=== PATIENT | female | born 1985 | race American Indian/Alaskan Native ===

== ENCOUNTER 2018-10-10 10:02 | Emergency (ER) | payer OTHER ==
[2018-10-10 10:18] VITALS: BP 128/65
[2018-10-10] MEDS ORDERED: DECADRON IV ONE (12:41)
[2018-10-10] MEDS ORDERED: ZOFRAN IV ONE (12:41)
[2018-10-10] MEDS ORDERED: TORADOL IV ONE (12:41)
[2018-10-10] MEDS ORDERED: NACL 0.9% 1000 ML 1,000 ML IV ONE (12:42)
[2018-10-10] MEDS ORDERED: IMITREX SUB-Q ONE (12:47)
--- NOTE | 2018-10-10 12:47 | Emergency Department Report ---
ED Headache HPI - General Chief Complaint: Headache Stated Complaint: HEADACHE/L ARM PAIN/VOMITTING Time Seen by Provider: 10/10/18 12:34 Source: patient, RN notes reviewed - History of Present Illness Initial Comments: Bridgett is a 33 yo healthy female who presents with headache for the past 4 days. She has pain at the medial eye region bilaterally. She has had malodorous nasal congestion. +vomiting one episode. No fever. +body aches +left arn tingling Has had headaches twice a month since adolescence, dx'd with sinus infection as a teenager, instructed to use flonase Pain is worse when she leans forward or when she presses on her eyes or head Timing/Duration: other (4 days) Quality: moderate, constant, pressure Modifying Factors: improves with: movement Associated Symptoms: nasal congestion, nasal drainage. denies: stiff neck Allergies/Adverse Reactions: Allergies No Known Allergies Allergy (Unverified 10/10/18 10:05) Home Medications: Ambulatory Orders Butalb/Acetaminophen/Caffeine [Fioricet 50-300-40 mg CAP] 1 cap PO Q6HR PRN #20 cap 10/10/18 ED Review of Systems ROS: Stated complaint: HEADACHE/L ARM PAIN/VOMITTING Other details as noted in HPI Comment: All other systems reviewed and negative Constitutional: malaise. denies: fever Respiratory: denies: cough Gastrointestinal: nausea, vomiting Musculoskeletal: myalgia ED Past Medical Hx - Past Medical History Previous Medical History?: No - Surgical History Past Surgical History?: Yes Additional Surgical History: eye plugs - Social History Smoking Status: Never Smoker Substance Use Type: None - Medications Home Medications: Home Medications Medication Instructions Recorded Confirmed Last Taken Type Butalb/Acetaminophen/Caffeine 1 cap PO Q6HR PRN #20 cap 10/10/18 Unknown Rx [Fioricet 50-300-40 mg CAP] ED Physical Exam - General Limitations: No Limitations General appearance: alert, in no apparent distress - Head Head exam: Present: atraumatic, normocephalic - Eye Eye exam: Present: normal appearance - ENT ENT exam: Present: mucous membranes moist - Neck Neck exam: Present: normal inspection, full ROM - Respiratory Respiratory exam: Present: normal lung sounds bilaterally. Absent: respiratory distress, wheezes, rales, rhonchi - Cardiovascular Cardiovascular Exam: Present: regular rate, normal rhythm, normal heart sounds. Absent: systolic murmur, diastolic murmur, rubs, gallop - GI/Abdominal GI/Abdominal exam: Present: soft, normal bowel sounds. Absent: distended, tenderness, guarding, rebound - Extremities Exam Extremities exam: Present: normal inspection - Back Exam Back exam: Present: normal inspection - Neurological Exam Neurological exam: Present: alert, oriented X3, CN II-XII intact, normal gait. Absent: motor sensory deficit - Psychiatric Psychiatric exam: Present: normal affect, normal mood - Skin Skin exam: Present: warm, dry, intact, normal color. Absent: rash ED Course Vital Signs 10/10/18 10:15 Temperature 98.0 F Pulse Rate 86 Respiratory 18 Rate Blood Pressure 128/65 O2 Sat by Pulse 99 Oximetry ED Medical Decision Making - Lab Data Result diagrams: 10/10/18 12:58 10/10/18 12:58 - Radiology Data Radiology results: report reviewed interpreted by me: CT head without contrast no acute process. Paranasal sinuses are clear. - Medical Decision Making Hyun is a healthy 33-year-old female who presents with paranasal frontal headache worse with position change. No indication of intracranial hemorrhage or meningitis. She is low risk for pseudotumor cerebri. No evidence of sinus disease on CT head. I have prescribed Fioricet for headache relief. I have referred patient to a neurologist. Also recommended and prescribed loratadine. Critical care attestation.: If time is entered above; I have spent that time in minutes in the direct care of this critically ill patient, excluding procedure time. ED Disposition Clinical Impression: Headache Disposition: DC-01 TO HOME OR SELFCARE Is pt being admited?: No Does the pt Need Aspirin: No Condition: Stable Instructions: Acute Headache (ED) Prescriptions: Butalb/Acetaminophen/Caffeine [Fioricet 50-300-40 mg CAP] 1 cap PO Q6HR PRN #20 cap PRN Reason: Headache Referrals: URVASHI SHEEHAN MD [Primary Care Provider] - 3-5 Days MELISSA ARMSTRONG MD [Staff Physician] - 3-5 Days Forms: Work/School Release Form(ED)
[2018-10-10 13:10] LABS: Basophils % (Auto) 0.4 % (0.0-1.8); Eosinophils % (Auto) 0.4 % (0.0-4.3); Hematocrit 28.5 % (30.3-42.9); Hemoglobin 9.4 gm/dl (10.1-14.3); Lymphocytes # (Auto) 1.7 K/mm3 (1.2-5.4); Lymphocytes % (Auto) 45.6 % (13.4-35.0); Mean Corpuscular HGB Conc 33 % (30-34); Mean Corpuscular Volume 78 fl (79-97); Monocytes # (Auto) 0.3 K/mm3 (0.0-0.8); Monocytes % (Auto) 9.2 % (0.0-7.3); Platelet Count 237 K/mm3 (140-440); Red Blood Count 3.65 M/mm3 (3.65-5.03); Red Cell Distribution Width 18.5 % (13.2-15.2)
[2018-10-10 13:29] LABS: BUN/Creatinine Ratio 10; Blood Urea Nitrogen 8 mg/dL (7-17); Calcium 8.9 mg/dL (8.4-10.2); Hemolysis Index 0
--- NOTE | 2018-10-10 15:35 | Cat Scan Report ---
CT head without contrast Clinical history: Headache, left arm tingling for 4 days. FINDINGS: No previous exams are available for comparison. The brain demonstrate appropriate attenuati on. The ventricular system is within normal limits in size and configuration. There is no clear CT en ds of acute intracranial hemorrhage or significant mass effect. The visualized paranasal sinuses are clear. The calvarium appears intact. All CT scans at this location are performed using the CT dose re duction for ALARA by means of automated exposure control. IMPRESSION: There is no CT evidence of acute intracranial process. Signer Name: Bassam Perez MD Signed: 10/10/2018 3:31 PM Workstation Name: [id number]
== END 2018-10-10 16:12 | disposition home or self-care (01) ==
LOC: ED 10:02
DX: R51 Headache (principal); R11.10 Vomiting, unspecified; M79.18 Myalgia, other site
CPT/HCPCS: 36415; 70450; 80048; 82550; 85025; 96361; 96372; 96374; 96375; 99284; J1100; J1885; J2405; J7030; J3030

== ENCOUNTER 2018-12-15 00:25 | Emergency (ER) | payer OTHER ==
[2018-12-15 01:24] VITALS: BP 133/81
--- NOTE | 2018-12-15 02:13 | XRay Report ---
Cervical spine 5 views Indication: neck pain Findings: There is no fracture, subluxation, or other acute radiographic abnormality of the cervical spine. The re is slight reversal the normal cervical lordosis. Prevertebral soft tissues are unremarkable. Disc space heights are maintained. Signer Name: Norberto Frederick MD Signed: 12/15/2018 2:08 AM Workstation Name: [id number]
[2018-12-15] MEDS ORDERED: DECADRON IM ONE (02:57)
--- NOTE | 2018-12-15 03:20 | Emergency Department Report ---
ED General Adult HPI - General Chief complaint: Neck Pain/Injury Stated complaint: CANT LIFT LEFT HAND OVER HEAD Time Seen by Provider: 12/15/18 02:29 Source: patient Mode of arrival: Ambulatory Limitations: No Limitations - History of Present Illness Initial comments: She is a 33-year-old female with no prior medical conditions who presents to ED complaining of left-sided arm muscle twitch in an spasm that began around 3 AM in the morning. Patient denies any trauma injuries or fall. Patient states that the day before she had pain at training lifting some desktops otherwise no shortness activities. - Related Data Previous Rx's Medication Instructions Recorded Last Taken Type Butalb/Acetaminophen/Caffeine 1 cap PO Q6HR PRN #20 cap 10/10/18 Unknown Rx [Fioricet 50-300-40 mg CAP] Loratadine 10 mg PO DAILY 30 Days #30 tablet 10/10/18 Unknown Rx Cyclobenzaprine [Flexeril] 10 mg PO QHS PRN #20 tablet 12/15/18 Unknown Rx Ibuprofen [Motrin] 800 mg PO Q8HR #30 tablet 12/15/18 Unknown Rx predniSONE [Deltasone] 60 mg PO QDAY #9 tab 12/15/18 Unknown Rx Allergies Allergy/AdvReac Type Severity Reaction Status Date / Time No Known Allergies Allergy Unverified 10/10/18 10:05 ED Review of Systems ROS: Stated complaint: CANT LIFT LEFT HAND OVER HEAD Other details as noted in HPI Comment: All other systems reviewed and negative ED Past Medical Hx - Past Medical History Previous Medical History?: Yes Additional medical history: sinus problems - Surgical History Past Surgical History?: Yes Additional Surgical History: eye plugs - Social History Smoking Status: Never Smoker Substance Use Type: None - Medications Home Medications: Home Medications Medication Instructions Recorded Confirmed Last Taken Type Butalb/Acetaminophen/Caffeine 1 cap PO Q6HR PRN #20 cap 10/10/18 Unknown Rx [Fioricet 50-300-40 mg CAP] Loratadine 10 mg PO DAILY 30 Days #30 tablet 10/10/18 Unknown Rx Cyclobenzaprine [Flexeril] 10 mg PO QHS PRN #20 tablet 12/15/18 Unknown Rx Ibuprofen [Motrin] 800 mg PO Q8HR #30 tablet 12/15/18 Unknown Rx predniSONE [Deltasone] 60 mg PO QDAY #9 tab 12/15/18 Unknown Rx ED Physical Exam - General Limitations: No Limitations General appearance: alert, in no apparent distress - Head Head exam: Present: atraumatic, normocephalic - Eye Eye exam: Present: normal appearance - ENT ENT exam: Present: mucous membranes moist - Neck Neck exam: Present: normal inspection - Respiratory Respiratory exam: Present: normal lung sounds bilaterally. Absent: respiratory distress - Cardiovascular Cardiovascular Exam: Present: regular rate, normal rhythm. Absent: systolic murmur, diastolic murmur, rubs, gallop - GI/Abdominal GI/Abdominal exam: Present: soft, normal bowel sounds - Extremities Exam Extremities exam: Present: normal inspection - Expanded Upper Extremity Exam Left General: Present: normal inspection Shoulder Exam: Present: normal inspection, full ROM. Absent: tenderness, swelling Upper Arm exam: Present: normal inspection, full ROM, tenderness (to palpation of the arm muscles.). Absent: swelling Elbow exam: Present: normal inspection, full ROM. Absent: tenderness, swelling, abrasion Forearm Wrist exam: Present: normal inspection, full ROM. Absent: tenderness, swelling Hand Wrist exam: Present: normal inspection, full ROM. Absent: tenderness, swelling - Back Exam Back exam: Present: normal inspection - Neurological Exam Neurological exam: Present: alert, oriented X3 - Psychiatric Psychiatric exam: Present: normal affect, normal mood - Skin Skin exam: Present: warm, dry, intact, normal color. Absent: rash ED Course Vital Signs 12/15/18 01:16 Temperature 98.0 F Pulse Rate 71 Respiratory 14 Rate Blood Pressure 133/81 O2 Sat by Pulse 99 Oximetry ED Medical Decision Making - Radiology Data Radiology results: report reviewed, image reviewed Fluoro Time In Minutes: Cervical spine 5 views Indication: neck pain Findings: There is no fracture, subluxation, or other acute radiographic abnormality of the cervical spine. There is slight reversal the normal cervical lordosis. Prevertebral soft tissues are unremarkable. Disc space heights are maintained. Signer Name: Norberto Frederick MD Signed: 12/15/2018 2:08 AM Workstation Name: [id number] Transcribed By: Dictated By: Norberto Frederick MD Electronically Authenticated By: Norberto Frederick MD Signed Date/Time: 12/15/18 0208 - Medical Decision Making 33-year-old female presents with muscle spasm and pain from radiculopathy. Patient received a shot of Decadron ED. CT scan of the cervical spine is normal, see report above Discussed the patient Critical care attestation.: If time is entered above; I have spent that time in minutes in the direct care of this critically ill patient, excluding procedure time. ED Disposition Clinical Impression: Cervical radiculopathy, Muscle spasm Disposition: TO HOME OR SELFCARE Is pt being admited?: No Does the pt Need Aspirin: No Condition: Stable Instructions: Cervical Radiculopathy (ED), Muscle Spasm (ED) Additional Instructions: Make sure to follow up with the primary care physician as discussed. Take all your medications as you've been prescribed. If you have any worsening symptoms or develop new symptoms please return to ED immediately. Prescriptions: Cyclobenzaprine [Flexeril] 10 mg PO QHS PRN #20 tablet PRN Reason: Muscle Spasm predniSONE [Deltasone] 60 mg PO QDAY #9 tab Ibuprofen [Motrin] 800 mg PO Q8HR #30 tablet Referrals: PRIMARY MD UZAIR [Primary Care Provider] - 3-5 Days ANDERSON MICHELLE MD [Staff Physician] - 3-5 Days MELISSA ARMSTRONG MD [Staff Physician] - 3-5 Days BEATRIZ CARVER MD [Staff Physician] - 3-5 Days Forms: Work/School Release Form(ED) Time of Disposition: 03:27
== END 2018-12-15 03:42 | disposition home or self-care (01) ==
LOC: ED 00:25
DX: M54.12 Radiculopathy, cervical region (principal); Z79.899 Other long term (current) drug therapy
CPT/HCPCS: 72050; 96372; 99283; J1100

== ENCOUNTER 2019-06-13 08:56 | Emergency (ER) | payer OTHER ==
[2019-06-13 08:59] VITALS: BP 139/86
--- NOTE | 2019-06-13 11:50 | Emergency Department Report ---
ED ENT HPI - General Chief complaint: Upper Respiratory Infection Stated complaint: SINUS, EARACHE, LEFT CHEST PAIN Time Seen by Provider: 06/13/19 10:30 Source: patient Mode of arrival: Ambulatory Limitations: No Limitations - History of Present Illness Initial comments: 34-year-old -[place] female patient without significant past medical history complains of nasal congestion, sinus pressure, sneezing for the past 2 days. She denies any fever/chills/sweats, nausea/vomiting, or cough. She also states she has left ear pain and that Excedrin Migraine is not helping with her symptoms she rates her pain as a 4/10 in severity. - Related Data Previous Rx's Medication Instructions Recorded Last Taken Type Butalb/Acetaminophen/Caffeine 1 cap PO Q6HR PRN #20 cap 10/10/18 Unknown Rx [Fioricet 50-300-40 mg CAP] Loratadine 10 mg PO DAILY 30 Days #30 tablet 10/10/18 Unknown Rx Cyclobenzaprine [Flexeril] 10 mg PO QHS PRN #20 tablet 12/15/18 Unknown Rx Ibuprofen [Motrin] 800 mg PO Q8HR #30 tablet 12/15/18 Unknown Rx predniSONE [Deltasone] 60 mg PO QDAY #9 tab 12/15/18 Unknown Rx Fluticasone [Flonase] 1 spray NS BID PRN #1 bottle 06/13/19 Unknown Rx Levocetirizine Dihydrochloride 5 mg PO QHS #12 tablet 06/13/19 Unknown Rx [Xyzal] Prednisone [predniSONE 10 mg 10 mg PO .TAPER #1 tab.ds.pk 06/13/19 Unknown Rx (6-Day Pack, 21 Tabs)] Allergies Allergy/AdvReac Type Severity Reaction Status Date / Time No Known Allergies Allergy Unverified 10/10/18 10:05 ED Dental HPI - General Chief complaint: Upper Respiratory Infection Stated complaint: SINUS, EARACHE, LEFT CHEST PAIN Time Seen by Provider: 06/13/19 10:30 Source: patient Mode of arrival: Ambulatory Limitations: No Limitations - Related Data Previous Rx's Medication Instructions Recorded Last Taken Type Butalb/Acetaminophen/Caffeine 1 cap PO Q6HR PRN #20 cap 10/10/18 Unknown Rx [Fioricet 50-300-40 mg CAP] Loratadine 10 mg PO DAILY 30 Days #30 tablet 10/10/18 Unknown Rx Cyclobenzaprine [Flexeril] 10 mg PO QHS PRN #20 tablet 12/15/18 Unknown Rx Ibuprofen [Motrin] 800 mg PO Q8HR #30 tablet 12/15/18 Unknown Rx predniSONE [Deltasone] 60 mg PO QDAY #9 tab 12/15/18 Unknown Rx Fluticasone [Flonase] 1 spray NS BID PRN #1 bottle 06/13/19 Unknown Rx Levocetirizine Dihydrochloride 5 mg PO QHS #12 tablet 06/13/19 Unknown Rx [Xyzal] Prednisone [predniSONE 10 mg 10 mg PO .TAPER #1 tab.ds.pk 06/13/19 Unknown Rx (6-Day Pack, 21 Tabs)] Allergies Allergy/AdvReac Type Severity Reaction Status Date / Time No Known Allergies Allergy Unverified 10/10/18 10:05 ED Review of Systems ROS: Stated complaint: SINUS, EARACHE, LEFT CHEST PAIN Other details as noted in HPI Constitutional: denies: chills, fever ENT: ear pain, congestion. denies: throat pain, hearing loss Respiratory: denies: cough, shortness of breath Cardiovascular: denies: chest pain Gastrointestinal: denies: nausea, vomiting, diarrhea Skin: denies: rash, lesions Neurological: headache (Facial pain). denies: numbness, paresthesias ED Past Medical Hx - Past Medical History Previous Medical History?: Yes Additional medical history: sinus problems - Surgical History Past Surgical History?: Yes Additional Surgical History: eye plugs - Social History Smoking Status: Never Smoker Substance Use Type: Alcohol - Medications Home Medications: Home Medications Medication Instructions Recorded Confirmed Last Taken Type Butalb/Acetaminophen/Caffeine 1 cap PO Q6HR PRN #20 cap 10/10/18 Unknown Rx [Fioricet 50-300-40 mg CAP] Loratadine 10 mg PO DAILY 30 Days #30 tablet 10/10/18 Unknown Rx Cyclobenzaprine [Flexeril] 10 mg PO QHS PRN #20 tablet 12/15/18 Unknown Rx Ibuprofen [Motrin] 800 mg PO Q8HR #30 tablet 12/15/18 Unknown Rx predniSONE [Deltasone] 60 mg PO QDAY #9 tab 12/15/18 Unknown Rx Fluticasone [Flonase] 1 spray NS BID PRN #1 bottle 06/13/19 Unknown Rx Levocetirizine Dihydrochloride 5 mg PO QHS #12 tablet 06/13/19 Unknown Rx [Xyzal] Prednisone [predniSONE 10 mg 10 mg PO .TAPER #1 tab.ds.pk 06/13/19 Unknown Rx (6-Day Pack, 21 Tabs)] ED Physical Exam - General Limitations: No Limitations General appearance: alert, in no apparent distress - Head Head exam: Present: atraumatic, normocephalic - Eye Eye exam: Present: normal appearance, PERRL. Absent: scleral icterus - ENT ENT exam: Present: normal orophraynx, mucous membranes moist, TM's normal bilaterally, other (Mild tenderness to palpation over maxillary sinuses bilaterally; inflamed turbinates noted bilaterally in nares) - Neck Neck exam: Present: normal inspection. Absent: tenderness, lymphadenopathy - Respiratory Respiratory exam: Present: normal lung sounds bilaterally. Absent: respiratory distress - Cardiovascular Cardiovascular Exam: Present: regular rate, normal rhythm - Neurological Exam Neurological exam: Present: alert, oriented X3, normal gait - Psychiatric Psychiatric exam: Present: normal affect, normal mood - Skin Skin exam: Present: warm, dry, intact, normal color. Absent: rash, cyanosis, diaphoretic, petechiae, ecchymosis ED Course Vital Signs 06/13/19 08:59 Temperature 98.7 F Pulse Rate 80 Respiratory 14 Rate Blood Pressure 139/86 [Right] O2 Sat by Pulse 98 Oximetry ED Medical Decision Making - Medical Decision Making There was symptoms of sinusitis. Symptoms have been ongoing for the past 3 days. She denies any fever/chills/sweats. Mild tenderness to palpation noted to maxillary sinuses on exam. Symptoms and exam appear to be consistent with viral sinusitis. Recommend conservative treatment at this time with steroids, Flonase, and antihistamine. Patient is well-appearing and stable for discharge home. Recommend follow-up with primary care provider in 5 days. Discussed strict return precautions in detail with patient who verbalizes understanding. Critical care attestation.: If time is entered above; I have spent that time in minutes in the direct care of this critically ill patient, excluding procedure time. ED Disposition Clinical Impression: Acute viral sinusitis Disposition: TO HOME OR SELFCARE Is pt being admited?: No Condition: Stable Instructions: Sinusitis (ED) Prescriptions: Levocetirizine Dihydrochloride [Xyzal] 5 mg PO QHS #12 tablet Fluticasone [Flonase] 1 spray NS BID PRN #1 bottle PRN Reason: nasal congestion Prednisone [predniSONE 10 mg (6-Day Pack, 21 Tabs)] 10 mg PO .TAPER #1 tab.ds.pk Referrals: PRIMARY CARE, [Primary Care Provider] - 3-5 Days
== END 2019-06-13 12:02 | disposition home or self-care (01) ==
LOC: ED 08:56
DX: J01.80 Other acute sinusitis (principal); B97.89 Other viral agents as the cause of diseases classified elsewhere; Z79.899 Other long term (current) drug therapy
CPT/HCPCS: 99282

== ENCOUNTER 2019-11-28 22:06 | Emergency (ER) | payer OTHER ==
[2019-11-28 22:44] VITALS: BP 146/84
[2019-11-28 23:23] LABS: Hematocrit 32.4 % (30.3-42.9); Hemoglobin 10.7 gm/dl (10.1-14.3); Mean Corpuscular HGB Conc 33 % (30-34); Mean Corpuscular Volume 91 fl (79-97); Platelet Count 251 K/mm3 (140-440); Red Blood Count 3.56 M/mm3 (3.65-5.03); Red Cell Distribution Width 14.8 % (13.2-15.2)
[2019-11-28 23:44] LABS: BUN/Creatinine Ratio 13; Blood Urea Nitrogen 10 mg/dL (7-17); Hemolysis Index 4
[2019-11-29] MEDS ORDERED: METOCLOPRAMIDE 10 MG/2 ML INJ IV ONE (00:53)
[2019-11-29] MEDS ORDERED: KETOROLAC 30 MG/1 ML INJ IV ONE (00:53)
[2019-11-29] MEDS ORDERED: MAGNESIUM SULFATE 2 GM/50 ML BAG IV ONE (00:53)
[2019-11-29] MEDS ORDERED: LIDOCAINE (4%) 40 MG/ML TOPICAL SOLN 50 ML BOTTLE TP ONE (00:53)
[2019-11-29] MEDS ORDERED: diphenhydrAMINE 50 MG/ML VIAL IV ONE (00:53)
--- NOTE | 2019-11-29 00:58 | Emergency Department Report ---
ED General Adult HPI - General Chief complaint: Nausea/Vomiting/Diarrhea Stated complaint: NAUSEA/FATIGUE/HEADACHE PUI?: No Time Seen by Provider: 11/29/19 00:23 Source: patient, RN notes reviewed, old records reviewed Mode of arrival: Ambulatory Limitations: No Limitations - History of Present Illness Initial comments: The patient was evaluated in the emergency department for symptoms described in the history of present illness. He/she was evaluated in the context of the global COVID-19 pandemic, which necessitated consideration that the patient might be at risk for infection with the virus that causes COVID-19. Institu tional protocols and algorithms that pertain to the evaluation of patients at risk for COVID-19 are in a state of rapid change based on information released by regulatory bodies including the CDC and federal and state organizations. These policies and algorithms were followed during the patient's care in the emergency department. Please note that these policies, procedures and recommendations changed on a rapid basis. Patient is a 34-year-old female, who states that she is not , and reports that she has not delivered or given within the past 6 weeks. The patient is in the and works as a police communications operator. She presents to the ER with a complaint of right cheek/retro-orbital sense of pressure, headache/discomfort, with mild nausea, vomited x1-2, with associated right-sided nasal congestion. Symptoms present for about 3 days. The headache is not sudden or thunderclap in nature. The headache is not the worst headache of her life. Headache is not maximal in intensity. No loss of vision, no neck stiffness, no sore throat, no chest pain, abdominal pain, shortness of breath, weakness, numbness, no loss of taste or smell, no exposure to covid that she is aware of. This is similar to prior headaches that she is had in the past. Patient endorses erratic sleep patterns secondary to her occupation. She also endorses using electronic devices for entertainment such as a laptop, before she goes to bed. Patient states she has not delivered or given within the past 6 weeks -: Gradual, days(s) Location: head, face Radiation: non-radiation Quality: aching Consistency: constant Improves with: rest Worsens with: other (Percussion) - Related Data Previous Rx's Medication Instructions Recorded Last Taken Type Butalb/Acetaminophen/Caffeine 1 cap PO Q6HR PRN #20 cap 10/10/18 Unknown Rx [Fioricet 50-300-40 mg CAP] Fluticasone [Flonase] 1 spray NS BID PRN #1 bottle 11/29/19 Unknown Rx Ibuprofen [Motrin] 600 mg PO Q8H PRN #30 tablet 11/29/19 Unknown Rx Loratadine 10 mg PO DAILY 30 Days #30 tablet 11/29/19 Unknown Rx Metoclopramide [Reglan] 10 mg PO QID PRN #30 tablet 11/29/19 Unknown Rx Allergies Allergy/AdvReac Type Severity Reaction Status Date / Time No Known Allergies Allergy Unverified 10/10/18 10:05 ED Review of Systems ROS: Stated complaint: NAUSEA/FATIGUE/HEADACHE Other details as noted in HPI Constitutional: malaise. denies: fever Eyes: denies: eye pain, eye discharge, vision change ENT: other (Nasal congestion, maxillary cheek pain) Respiratory: denies: cough Cardiovascular: denies: chest pain Gastrointestinal: nausea, vomiting. denies: abdominal pain Genitourinary: denies: dysuria Neurological: headache. denies: weakness, numbness, paresthesias, confusion ED Past Medical Hx - Past Medical History Previous Medical History?: Yes Additional medical history: sinus problems - Surgical History Past Surgical History?: Yes Additional Surgical History: eye plugs - Social History Smoking Status: Never Smoker Substance Use Type: None - Medications Home Medications: Home Medications Medication Instructions Recorded Confirmed Last Taken Type Butalb/Acetaminophen/Caffeine 1 cap PO Q6HR PRN #20 cap 10/10/18 Unknown Rx [Fioricet 50-300-40 mg CAP] Fluticasone [Flonase] 1 spray NS BID PRN #1 bottle 11/29/19 Unknown Rx Ibuprofen [Motrin] 600 mg PO Q8H PRN #30 tablet 11/29/19 Unknown Rx Loratadine 10 mg PO DAILY 30 Days #30 tablet 11/29/19 Unknown Rx Metoclopramide [Reglan] 10 mg PO QID PRN #30 tablet 11/29/19 Unknown Rx ED Physical Exam - General Limitations: No Limitations General appearance: alert, in no apparent distress - Head Head exam: Present: atraumatic, normocephalic - Eye Eye exam: Present: normal appearance, PERRL, EOMI, other (Visual acuity intact to finger counting, color perception, reading at a close distance). Absent: nystagmus - ENT ENT exam: Present: normal exam, normal orophraynx, mucous membranes moist, TM's normal bilaterally, normal external ear exam, other (There is reproducible maxillary sinus tenderness) - Neck Neck exam: Present: normal inspection, full ROM. Absent: tenderness, meningismus - Respiratory Respiratory exam: Present: normal lung sounds bilaterally. Absent: respiratory distress, wheezes, rales, rhonchi, stridor, decreased breath sounds - Cardiovascular Cardiovascular Exam: Present: regular rate, normal rhythm, normal heart sounds. Absent: bradycardia, tachycardia, irregular rhythm, systolic murmur, diastolic murmur, rubs, gallop - GI/Abdominal GI/Abdominal exam: Present: soft. Absent: distended, tenderness, guarding, rebound, rigid, pulsatile mass - Extremities Exam Extremities exam: Present: normal inspection, full ROM, other (2+ pulses noted in the bilateral upper and lower extremities. There is no palpable cord. negative Homans sign. Muscular compartments are soft. The pelvis is stable.). Absent: pedal edema, calf tenderness - Back Exam Back exam: Present: normal inspection, full ROM. Absent: tenderness, CVA tenderness (R), CVA tenderness (L), paraspinal tenderness, vertebral tenderness - Neurological Exam Neurological exam: Present: alert, normal gait, other (No facial droop. Tongue midline. Extraocular movements intact bilaterally. Facial sensation intact to light touch in V1, V2, V3 distribution bilaterally. 5 and a 5 strength in 4 extremities. Sensation intact to light touch in 4 extremities.). Absent: motor sensory deficit - Psychiatric Psychiatric exam: Present: anxious - Skin Skin exam: Present: warm, dry, intact, normal color. Absent: rash ED Course Vital Signs 11/28/19 22:43 Temperature 98.0 F Pulse Rate 69 Respiratory 12 Rate Blood Pressure 146/84 O2 Sat by Pulse 100 Oximetry - Reevaluation(s) Reevaluation #1: 11/29/19 00:57 Differential diagnosis, including but not limited to: Sinusitis, tension headache, cluster headache, migraine headache Assessment and plan: 34-year-old female with reproducible right-sided maxillary sinus tenderness, unremarkable dental exam, GCS 15, no meningeal signs, clinically sober, also right-sided retro-orbital pain, may be component of cluster headache and/or sinusitis. Symptoms present for a few days, she is afebrile with reassuring vital signs, therefore, does not require antibiotic therapy. She has had a CT scan of the brain this past year which was unremarkable. This is not the worst headache of her life. Laboratory studies were ordered prior to my personal evaluation, and they appear to be unremarkable. history and physical not suggestive of dangerous etiology of headache at this time. We will treat her supportively and symptomatically. Reassess after initial therapies have been initiated. Patient asking to drink at this time. Reevaluation #2: 11/29/19 01:38 Patient noted to be drinking water. The patient states that she feels much improved. Her repeat neurologic examination is unchanged. She endorses readiness for discharge. ED Medical Decision Making - Lab Data Result diagrams: 11/28/19 22:57 11/28/19 22:57 Vital Signs 11/28/19 22:43 Temperature 98.0 F Pulse Rate 69 Respiratory 12 Rate Blood Pressure 146/84 O2 Sat by Pulse 100 Oximetry Lab Results 11/28/19 11/28/19 11/28/19 Range/Units 22:57 22:57 22:57 WBC 6.9 (4.5-11.0) K/mm3 RBC 3.56 L (3.65-5.03) M/mm3 Hgb 10.7 (10.1-14.3) gm/dl Hct 32.4 (30.3-42.9) % MCV 91 (79-97) fl MCH 30 (28-32) pg MCHC 33 (30-34) % RDW 14.8 (13.2-15.2) % Plt Count 251 (140-440) K/mm3 Sodium 141 (137-145) mmol/L Potassium 3.9 (3.6-5.0) mmol/L Chloride 104.5 (98-107) mmol/L Carbon Dioxide 22 (22-30) mmol/L Anion Gap 18 mmol/L BUN 10 (7-17) mg/dL Creatinine 0.8 (0.6-1.2) mg/dL Estimated GFR > 60 ml/min BUN/Creatinine Ratio 13 % Glucose 103 H (65-100) mg/dL Calcium 9.0 (8.4-10.2) mg/dL HCG, Qual Negative (Negative) Critical care attestation.: If time is entered above; I have spent that time in minutes in the direct care of this critically ill patient, excluding procedure time. ED Disposition Clinical Impression: Headache Qualifiers: Headache type: unspecified Headache chronicity pattern: episodic headache Intractability: not intractable Qualified Code(s): R51 - Headache Disposition: DC-01 TO HOME OR SELFCARE Is pt being admited?: No Does the pt Need Aspirin: No Condition: Stable Additional Instructions: Please make certain to get 7 to 8 hours of good quality uninterrupted sleep each night. Minimize electronics use prior to going to bed. Patient may use vaporizer, humidifier, or [place] pot to assist with nasal congestion and mild sinusitis. Take the medications as needed and directed, advance diet as tolerated. Follow- up with a primary care doctor or neurologist within the next 2 to 3 weeks. Please return to the emergency room right away with new pain, worsened pain, migration of pain, intractable nausea or vomiting, fevers or chills, inability to tolerate liquid feeds, new, worsened or different symptoms not present on the initial emergency room evaluation. Prescriptions: Fluticasone [Flonase] 1 spray NS BID PRN #1 bottle PRN Reason: nasal congestion Loratadine 10 mg PO DAILY 30 Days #30 tablet Ibuprofen [Motrin] 600 mg PO Q8H PRN #30 tablet PRN Reason: Pain Metoclopramide [Reglan] 10 mg PO QID PRN #30 tablet PRN Reason: Nausea Referrals: TUNDE HAWLEY MD [Staff Physician] - 3-5 Days MELISSA ARMSTRONG MD [Staff Physician] - 3-5 Days
[2019-11-29 03:51] LABS: Basophils % (Manual) 0 % (0.0-1.8); Total Cells Counted 100
[2019-11-29 03:52] LABS: Anisocytosis Few; Hypochromasia Few; Ovalocytes Few; Platelet Estimate Consistent w Auto
== END 2019-11-29 01:40 | disposition home or self-care (01) ==
LOC: ED 22:06
DX: R51 Headache (principal); R11.2 Nausea with vomiting, unspecified; R09.81 Nasal congestion; Z79.899 Other long term (current) drug therapy
CPT/HCPCS: 36415; 80048; 84703; 85007; 85025; 96365; 96375; 99284; J1200; J1885; J2765; J3475